=== PATIENT | male | born 1995 | race Caucasian/White ===

== ENCOUNTER 2019-08-29 08:06 | Emergency (ER) | payer BC ==
[~2019-08-29] VITALS: Ht 188 cm; Wt 120.5 kg
[2019-08-29] MEDS ORDERED: normal saline 1000ml 1,000 ML IV ONE (08:25)
[2019-08-29] MEDS ORDERED: ondansetron/PF 4mg/2ml inj IV ONE ×2 (08:25→08:30)
[2019-08-29] MEDS ORDERED: proCHLORperazine 10 MG/2 ml inj IV ONE (08:30)
[2019-08-29 09:09] LABS: CLARITY,URINE CLOUDY (Clear); COLOR,URINE YELLOW (Yellow); GLUCOSE, URINE NEGATIVE (Neg); KETONES,URINE >=80 mg/dl (Neg); LEUKOCYTE ESTERASE ,URINE NEGATIVE (Neg); NITRITES, URINE NEGATIVE (Neg); OCCULT BLOOD,URINE NEGATIVE (Neg); PROTEIN,URINE 30 mg/dl (Neg)
[2019-08-29 09:11] VITALS: BP 129/50
[2019-08-29 09:13] LABS: UA COLLECTION TYPE CLN CATCH MIDSTREAM
[2019-08-29 09:17] LABS: SQUAMOUS EPITHELIAL CELL,UR FEW /LPF (FEW)
[2019-08-29 09:18] LABS: CAL OXALATE CRYSTALS 2+ /HPF (NEGATIVE)
[2019-08-29 09:19] LABS: BACTERIA,URINE 1+ /HPF (Neg); RBC,URINE 0-2 /HPF (0-2); WBC,URINE 0-4 /HPF (0-4)
[2019-08-29] MEDS ORDERED: PROC-8 PO (09:27)
[2019-08-29] MEDS ORDERED: ONDA8TAB6 PO (09:27)
== END 2019-08-29 09:56 | disposition home or self-care (01) ==
LOC: ER 08:07
DX: R11.2 Nausea with vomiting, unspecified (principal); R19.7 Diarrhea, unspecified; F12.90 Cannabis use, unspecified, uncomplicated; Z79.899 Other long term (current) drug therapy
CPT/HCPCS: 81001; 96361; 96374; 96375; 99284; J0780; J2405; J7030

== ENCOUNTER 2019-10-13 07:32 | Emergency (ER) | payer BC ==
[~2019-10-13] VITALS: Ht 190.5 cm; Wt 108.6 kg
[~2019-10-13 07:32] MED LIST: ONDA8TAB6 PO; PROC-8 PO
[2019-10-13] MEDS ORDERED: LORazepam 2 mg/ml vial IV ONE (08:20)
[2019-10-13] MEDS ORDERED: normal saline 1000ML IV soln IVB ONE (08:20)
[2019-10-13] MEDS ORDERED: diphenhydrAMINE 50 mg/ml inj IV ONE (08:20)
[2019-10-13] MEDS ORDERED: haloperidol lactate 5mg/ml inj IM ONE (08:20)
[2019-10-13] MEDS ORDERED: ondansetron/PF 4mg/2ml inj IV ONE (08:20)
--- NOTE | 2019-10-13 08:45 | NUR ---
DUE EMDS GIVEN,CALL LIGHT WITHIN REACH.
[2019-10-13 08:49] LABS: BASOPHILS % (AUTO) 0.2 % (0-1); EOSINOPHILS % (AUTO) 0.1 % (0-6); HEMATOCRIT 48.9 % (42.0-52.0); HEMOGLOBIN 16.4 g/dl (14.0-17.9); LYMPHOCYTES # (AUTO) 0.9 X10'3 (1.1-4.8); LYMPHOCYTES % (AUTO) 7.9 % (21-51); MEAN CORPUSCULAR HEMOGLOBIN 29.9 PG (27.0-31.0); MEAN CORPUSCULAR HGB CONC 33.5 g/dL (33.0-36.5); MEAN CORPUSCULAR VOLUME 89.2 FL (78-98); MEAN PLATELET VOLUME 9.5 FL (7.4-10.4); MONOCYTES # (AUTO) 0.3 X10'3 (0-0.9); MONOCYTES % (AUTO) 2.4 % (2-12); NEUTROPHILS # (AUTO) 10.4 X10'3 (1.8-7.7); NEUTROPHILS % (AUTO) 89.4 % (42-75); PLATELET COUNT 176 X10'3 (140-440); RED BLOOD COUNT 5.49 X10'6 (4.70-6.10); RED CELL DISTRIBUTION WIDTH 13.7 % (11.5-14.5); WHITE BLOOD COUNT 11.6 X10'3 (4.5-11.0)
[2019-10-13 09:04] LABS: ALANINE AMINOTRANSFERASE 20 U/L (12-78); ALBUMIN 4.8 G/DL (3.4-5.0); ALBUMIN/GLOBULIN RATIO 1.5 (1.1-1.5); ALKALINE PHOSPHATASE 63 IU/L (46-116); ANION GAP 12 (8-16); ASPARTATE AMINO TRANSFERASE 10 U/L (10-37); BILIRUBIN,TOTAL 1.5 MG/DL (0.1-1.0); BLOOD UREA NITROGEN 12 MG/DL (7-18); CALCIUM 9.7 MG/DL (8.5-10.1); CHLORIDE 103 MMOL/L (99-107); GLUCOSE 145 MG/DL (70-104); POTASSIUM 3.1 MMOL/L (3.5-5.1); SODIUM 140 MMOL/L (135-145); TOTAL CARBON DIOXIDE 25.1 MMOL/L (24-32); eGFR 76 ML/MIN
[2019-10-13 09:28] VITALS: BP 107/54
== END 2019-10-13 09:44 | disposition home or self-care (01) ==
LOC: ER 07:33
DX: R11.15 Cyclical vomiting syndrome unrelated to migraine (principal); R11.2 Nausea with vomiting, unspecified; F12.90 Cannabis use, unspecified, uncomplicated; Z88.0 Allergy status to penicillin; Z79.899 Other long term (current) drug therapy
CPT/HCPCS: 36415; 80053; 85025; 96361; 96372; 96374; 96375; 99284; J1200; J1630; J2060; J2405; J7030